=== PATIENT | male | born 1985 | race Asian ===

== ENCOUNTER 2017-11-17 09:45 | Emergency (ER) | payer SELFPAY ==
[~2017-11-17] VITALS: Ht 180.3 cm; Wt 71.0 kg
[2017-11-17 12:32] LABS: BASOPHILS % 0.4 % (0.0-2.0); EOSINOPHILS % 1.3 % (0.0-5.0); HEMATOCRIT. 42.3 % (42.0-52.0); HEMOGLOBIN. 13.7 g/dL (14.0-18.0); LYMPHOCYTES % 26.1 % (20.0-50.0); MEAN CORPUSCULAR HEMOGLOBIN 23.6 pg (28.0-32.0); MEAN PLATELET VOLUME 8.1 fl (7.4-10.4); MONOCYTES % 6.8 % (2.0-8.0); NEUTROPHILS % 65.4 % (40.0-76.0); PLATELET 237 x1000/uL (130-400); RED CELL DISTRIBUTION WIDTH 15.5 % (11.6-14.6)
[2017-11-17 12:39] LABS: CHLORIDE 110 mEq/L (98-107)
[2017-11-17] MEDS ORDERED: QUETIAPINE FUMARATE 100MG TABLET PO SCH ×2 (13:30→13:45)
[2017-11-17 14:09] VITALS: BP 140/90
== END 2017-11-17 14:11 | disposition home or self-care (01) ==
LOC: ER 10:45
DX: F20.9 Schizophrenia, unspecified (principal); F31.9 Bipolar disorder, unspecified; F17.200 Nicotine dependence, unspecified, uncomplicated; Z76.0 Encounter for issue of repeat prescription
CPT/HCPCS: 36415; 80048; 85025; 99284

== ENCOUNTER 2018-10-15 00:59 | Emergency (ER) | payer SELFPAY ==
[~2018-10-15] VITALS: Ht 177.8 cm; Wt 76.0 kg
[2018-10-15] MEDS ORDERED: IBUPROFEN 800MG TABLET PO ONE (06:30)
[2018-10-15 09:40] VITALS: BP 145/95
== END 2018-10-15 09:46 | disposition home or self-care (01) ==
LOC: ER 00:59
DX: S60.221A Contusion of right hand, initial encounter (principal); F12.10 Cannabis abuse, uncomplicated; F17.210 Nicotine dependence, cigarettes, uncomplicated; Y35.893A Legal intervention involving other specified means, suspect injured, initial encounter; Y93.89 Activity, other specified; Y92.89 Other specified places as the place of occurrence of the external cause
CPT/HCPCS: 29125; 73110; 73130; 99283; Z7610